=== PATIENT | female | born 1950 | race Caucasian/White ===

== ENCOUNTER 2018-05-10 09:54 | Emergency (ER) | payer OTHER ==
[~2018-05-10] VITALS: Ht 157.5 cm; Wt 66.2 kg
[2018-05-10] MEDS ORDERED: ZANTAC150 MG PO (15:07)
[2018-05-10] MEDS ORDERED: LEVSIN/SL0.125 MG PO (15:07)
[2018-05-10] MEDS ORDERED: KETO10TA2 PO (15:07)
== END 2018-05-10 15:24 | disposition home or self-care (01) ==
LOC: ER 09:54 → EDBD 10:12 → ER 15:24
DX: R10.13 Epigastric pain (principal)

== ENCOUNTER 2018-06-08 04:45 | Day surgery (SDC) | payer OTHER ==
[~2018-06-08 04:45] MED LIST: FENOFIBRATE160 MG; KETO10TA2 PO; LEVO-T88 MCG; LEVSIN/SL0.125 MG PO; METOPROLOL SUCC50 MG; ZANTAC150 MG PO
== END 2018-06-08 15:15 | disposition home or self-care (01) ==
LOC: CIR.AMB 04:45
DX: K80.10 Calculus of gallbladder with chronic cholecystitis without obstruction (principal)

== ENCOUNTER 2021-03-01 07:15 | Outpatient (CLI) | payer OTHER | END 2021-03-01 07:17 | disposition home or self-care (01) | LOC: NUCLEAR 07:15 | PROVIDERS: ATTEND Internal Medicine Cardiovascular Disease | DX: I50.1 Left ventricular failure, unspecified (principal) | CPT/HCPCS: 78452; 93017; A9500; J0153 ==